=== PATIENT | male | born 1965 | race Caucasian/White ===

== ENCOUNTER 2016-11-23 01:22 | Inpatient (IN) | payer OTHER ==
[~2016-11-23] VITALS: Ht 175.3 cm; Wt 86.2 kg
[~2016-11-23 01:22] MED LIST: DIABETA 5 MG TAB5 MG PO; DIFLUCAN100 MG PO; GLUCOPHAGE XR500 MG PO; NORCO 5-325 TA1 EACH PO; NORVASC 5 MG TAB5 MG PO; ZOFRAN4 MG PO
[2016-11-23 02:58] LABS: HEMOGLOBIN 16.3 gm/dl (14.0-17.5); RED BLOOD COUNT 5.52 M/UL (4.20-5.50); WHITE BLOOD COUNT 7.3 K/UL (4.5-11.0)
[2016-11-23 03:15] LABS: BUN/CREATININE RATIO 13 (0-10)
[2016-11-24] MEDS ORDERED: LIPITOR TAB 2020 MG PO (17:05)
[2016-11-24] MEDS ORDERED: GLUCOPHAGE 500500 MG PO (17:06)
[2016-11-24] MEDS ORDERED: ASPIRIN325 MG PO (17:07)
== END 2016-11-24 18:15 | disposition home or self-care (01) | DRG 65 ==
LOC: ER1 01:22 → M/S 05:45 → ZEROF 05:45 → M/S 08:36
PROVIDERS: Family Medicine; ADMIT Internal Medicine
DX: I63.22 Cerebral infarction due to unspecified occlusion or stenosis of basilar artery (principal); G81.94 Hemiplegia, unspecified affecting left nondominant side; E11.65 Type 2 diabetes mellitus with hyperglycemia; R11.0 Nausea; I10 Essential (primary) hypertension; F41.9 Anxiety disorder, unspecified; Z79.84 Long term (current) use of oral hypoglycemic drugs; Z88.8 Allergy status to other drugs, medicaments and biological substances; Z88.5 Allergy status to narcotic agent; Z82.49 Family history of ischemic heart disease and other diseases of the circulatory system
CPT/HCPCS: ECHO; 36415; 70450; 70551; 71010; 80053; 80061; 82550; 82553; 82962; 83036; 83874; 84484; 85025; 93005; 93306; 93880; 93971; 96374; 99285; J2405

== ENCOUNTER → 2016-12-15 | Outpatient (CLI) | payer OTHER ==
[~2016-12-15] MED LIST changes: +ASPIRIN325 MG PO; +GLUCOPHAGE 500500 MG PO; +LIPITOR TAB 2020 MG PO
== END ==
LOC: US 10:00
DX: E04.1 Nontoxic single thyroid nodule (principal)
CPT/HCPCS: 10022; 76536

== ENCOUNTER 2016-12-17 19:38 | Emergency (ER) | payer OTHER ==
[2016-12-17 20:19] LABS: HEMOGLOBIN 15.2 gm/dl (14.0-17.5); RED BLOOD COUNT 5.25 M/UL (4.20-5.50); WHITE BLOOD COUNT 5.7 K/UL (4.5-11.0)
[2016-12-17 20:50] LABS: BUN/CREATININE RATIO 9 (0-10)
== END 2016-12-17 23:21 | disposition left against medical advice (07) ==
LOC: ER1 19:38
PROVIDERS: Emergency Medicine
DX: E11.65 Type 2 diabetes mellitus with hyperglycemia (principal); I10 Essential (primary) hypertension; Z88.5 Allergy status to narcotic agent; Z79.82 Long term (current) use of aspirin; Z90.49 Acquired absence of other specified parts of digestive tract; Z86.73 Personal history of transient ischemic attack (TIA), and cerebral infarction without residual deficits
CPT/HCPCS: 36415; 70450; 71010; 80053; 82550; 82553; 83874; 84484; 85025; 85610; 85730; 93005; 99285

== ENCOUNTER 2020-09-23 03:57 | Emergency (ER) | payer OTHER ==
[~2020-09-23 03:57] MED LIST changes: +BASAGLAR K100 UNIT/1 SQ; +KEFLEX CAP 500500 MG PO; +NORCO 7.5-3251 EACH PO; +PHENERGAN 12.12.5 MG PR; +VIBRAMYCIN100 MG PO; +ZOFRAN ODT 4 MG4 MG PO
[2020-09-23 05:39] LABS: HEMOGLOBIN 14.4 gm/dl (14.0-17.5); RED BLOOD COUNT 5.39 M/UL (4.20-5.50); WHITE BLOOD COUNT 7.3 K/UL (4.5-11.0)
[2020-09-23 06:04] LABS: BUN/CREATININE RATIO 7 (0-10)
== END 2020-09-23 06:51 | disposition home or self-care (01) ==
LOC: ER1 03:57
PROVIDERS: Family Medicine
DX: I10 Essential (primary) hypertension (principal); K21.9 Gastro-esophageal reflux disease without esophagitis; Z95.1 Presence of aortocoronary bypass graft; Z88.1 Allergy status to other antibiotic agents; Z88.5 Allergy status to narcotic agent
CPT/HCPCS: 36415; 80053; 82550; 82553; 83874; 84484; 85025; 93005; 99283

== ENCOUNTER 2021-02-19 20:14 | Emergency (ER) | payer OTHER ==
[2021-02-19 20:50] LABS: HEMOGLOBIN 16.2 gm/dl (14.0-17.5); RED BLOOD COUNT 5.89 M/UL (4.20-5.50); WHITE BLOOD COUNT 10.8 K/UL (4.5-11.0)
[2021-02-19 21:11] LABS: BUN/CREATININE RATIO 7 (0-10)
== END 2021-02-19 22:29 | disposition home or self-care (01) ==
LOC: ER1 20:14
PROVIDERS: Physician Assistant
DX: R20.0 Anesthesia of skin (principal); R11.0 Nausea; E11.9 Type 2 diabetes mellitus without complications; Z95.1 Presence of aortocoronary bypass graft; Z90.49 Acquired absence of other specified parts of digestive tract; Z79.02 Long term (current) use of antithrombotics/antiplatelets; Z86.73 Personal history of transient ischemic attack (TIA), and cerebral infarction without residual deficits
CPT/HCPCS: 70450; 80053; 82550; 82553; 82962; 83874; 84484; 85025; 93005; 96374; 99284; J2405

== ENCOUNTER 2021-06-04 16:32 | Inpatient (IN) | payer OTHER ==
[~2021-06-04] VITALS: Ht 175.3 cm; Wt 90.7 kg
[2021-06-04 17:56] LABS: HEMOGLOBIN 15.4 gm/dl (14.0-17.5); RED BLOOD COUNT 5.45 M/UL (4.20-5.50); WHITE BLOOD COUNT 23.4 K/UL (4.5-11.0)
[2021-06-04 18:36] LABS: BUN/CREATININE RATIO 8 (0-10)
[2021-06-04] MEDS ORDERED: ASPIRIN EC81 MG PO (19:41)
[2021-06-04] MEDS ORDERED: LOSARTAN POTAS100 MG PO (19:41)
[2021-06-04] MEDS ORDERED: GABAPENTIN600 MG PO (19:42)
[2021-06-04] MEDS ORDERED: ONDANSETRON HCL8 MG PO (19:42)
[2021-06-04] MEDS ORDERED: CLOPIDOGREL75 MG PO (19:43)
[2021-06-04] MEDS ORDERED: LANTUS SOL100 UNIT/1 SQ (19:43)
[2021-06-05 07:24] LABS: HEMOGLOBIN 14.2 gm/dl (14.0-17.5); RED BLOOD COUNT 5.14 M/UL (4.20-5.50)
[2021-06-05 07:29] LABS: WHITE BLOOD COUNT 12.4 K/UL (4.5-11.0)
[2021-06-05 07:57] LABS: BUN/CREATININE RATIO 9 (0-10)
[2021-06-05 17:52] LABS: ACINETOBACTER BAUMANNII Not Detected (Negative); CANDIDA ALBICANS Not Detected (Negative); CANDIDA KRUSEI Not Detected (Negative); CANDIDA TROPICALIS Not Detected (Negative); ENTEROCOCCUS Not Detected (Negative); ESCHERICHIA COLI Not Detected (Negative); HAEMOPHILUS INFLUENZAE Not Detected (Negative); KLEBSIELLA OXYTOCA Not Detected (Negative); KLEBSIELLA PNEUMONIAE Not Detected (Negative); KPC-CARBAPENEM-RESISTANCE GENE Not Detected (Negative); PROTEUS Not Detected (Negative); PSEUDOMONAS AERUGINOSA Not Detected (Negative); SERRATIA MARCESANS Not Detected (Negative); STREP AGALACTIAE (GROUP B) Not Detected (Negative); STREP PYOGENES (GROUP A) Not Detected (Negative); STREPTOCOCCUS Not Detected (Negative); mecA (METHICILLIN RESIST GENE Not Detected (Negative); vanA/B (VANCOMYCIN RESIST GENE Not Detected (Negative)
[2021-06-05 19:22] LABS: STAPHYLOCOCCUS DETECTED (Negative)
[2021-06-05 19:25] LABS: STAPHYLOCOCCUS AUREUS DETECTED (Negative)
[2021-06-05] MEDS ORDERED: FAMOTIDINE20 MG PO (19:41)
[2021-06-05] MEDS ORDERED: PROTONIX 40 MG40 M1 PO (19:42)
[2021-06-05] MEDS ORDERED: OXYCODONE HCL15 MG PO (19:42)
[2021-06-06 05:49] LABS: RED BLOOD COUNT 5.33 M/UL (4.20-5.50)
[2021-06-06 05:50] LABS: WHITE BLOOD COUNT 6.8 K/UL (4.5-11.0)
[2021-06-06 06:11] LABS: BUN/CREATININE RATIO 9 (0-10)
--- NOTE | 2021-06-06 16:56 | NUR ---
WOUND CARE PERFORMED AT THIS TIME. PATIENT TOLERATED WELL. UNABLE TO PACK WOUND ORDERED DUE TO DEPTH AND SIZE OF WOUND. CLEANSED AND WRAPPED WITH KERLIX.
[2021-06-08 07:00] LABS: HEMOGLOBIN 14.1 gm/dl (14.0-17.5); RED BLOOD COUNT 5.05 M/UL (4.20-5.50); WHITE BLOOD COUNT 6.9 K/UL (4.5-11.0)
[2021-06-08 07:18] LABS: BUN/CREATININE RATIO 9 (0-10)
[2021-06-08] MEDS ORDERED: AUGMENTIN 875-1 EACH PO (17:16)
[2021-06-08] MEDS ORDERED: ATORVASTATIN CA20 MG PO (17:16)
== END 2021-06-08 18:30 | disposition home or self-care (01) | DRG 638 ==
LOC: ER1 16:32 → CDU 19:11 → M/S 19:11
PROVIDERS: Physician Assistant Medical; ADMIT Internal Medicine
PROC: B24BZZZ Ultrasonography of Heart with Aorta (ICD-10-PCS; principal; 2021-06-08)
DX: E11.621 Type 2 diabetes mellitus with foot ulcer (principal); L97.528 Non-pressure chronic ulcer of other part of left foot with other specified severity; L02.612 Cutaneous abscess of left foot; E11.65 Type 2 diabetes mellitus with hyperglycemia; L03.032 Cellulitis of left toe; Z20.822 Contact with and (suspected) exposure to COVID-19; G89.29 Other chronic pain; M54.9 Dorsalgia, unspecified; E11.40 Type 2 diabetes mellitus with diabetic neuropathy, unspecified; I08.3 Combined rheumatic disorders of mitral, aortic and tricuspid valves; B95.61 Methicillin susceptible Staphylococcus aureus infection as the cause of diseases classified elsewhere; I25.10 Atherosclerotic heart disease of native coronary artery without angina pectoris; Z86.73 Personal history of transient ischemic attack (TIA), and cerebral infarction without residual deficits; Z79.82 Long term (current) use of aspirin; Z79.02 Long term (current) use of antithrombotics/antiplatelets; Z95.1 Presence of aortocoronary bypass graft; Z90.49 Acquired absence of other specified parts of digestive tract; Z82.49 Family history of ischemic heart disease and other diseases of the circulatory system; Z88.0 Allergy status to penicillin; Z88.8 Allergy status to other drugs, medicaments and biological substances; Z88.5 Allergy status to narcotic agent
CPT/HCPCS: ECHO; 36415; 73630; 73718; 80048; 80053; 80202; 82962; 83605; 85025; 85652; 86140; 87040; 87077; 87150; 87186; 93005; 93306; 93926; 96365; 96375; 99284; J0690; J0780; J1335; J1650; J2270; J2405; J3370; J7030; J7070; U0002

== ENCOUNTER 2021-09-06 14:50 | Emergency (ER) | payer OTHER ==
[~2021-09-06 14:50] MED LIST changes: +ASPIRIN EC81 MG PO; +ATORVASTATIN CA20 MG PO; +AUGMENTIN 875-1 EACH PO; +CLOPIDOGREL75 MG PO; +FAMOTIDINE20 MG PO; +GABAPENTIN600 MG PO; +LANTUS SOL100 UNIT/1 SQ; +LOSARTAN POTAS100 MG PO; +ONDANSETRON HCL8 MG PO; +OXYCODONE HCL15 MG PO; +PROTONIX 40 MG40 M1 PO
[2021-09-06 16:32] LABS: HEMOGLOBIN 16.4 gm/dl (14.0-17.5); RED BLOOD COUNT 5.82 M/UL (4.20-5.50); WHITE BLOOD COUNT 4.3 K/UL (4.5-11.0)
== END 2021-09-06 17:35 | disposition home or self-care (01) ==
LOC: ER1 14:50
PROVIDERS: Physician Assistant Medical
DX: U07.1 COVID-19 (principal); R11.0 Nausea; I10 Essential (primary) hypertension; E10.9 Type 1 diabetes mellitus without complications
CPT/HCPCS: 71045; 73630; 80053; 85025; 85652; 86140; 99283; U0002

== ENCOUNTER 2021-09-12 11:35 | Emergency (ER) | payer OTHER ==
[2021-09-12 12:12] LABS: HEMOGLOBIN 16.2 gm/dl (14.0-17.5); RED BLOOD COUNT 5.79 M/UL (4.20-5.50); WHITE BLOOD COUNT 4.7 K/UL (4.5-11.0)
[2021-09-12 12:34] LABS: BUN/CREATININE RATIO 15 (0-10)
[2021-09-12] MEDS ORDERED: ZOFRAN 4 MG TAB4 MG PO (14:00)
== END 2021-09-12 14:23 | disposition home or self-care (01) ==
LOC: ER1 11:35
PROVIDERS: Physician Assistant
DX: U07.1 COVID-19 (principal); J12.82 Pneumonia due to coronavirus disease 2019; I11.9 Hypertensive heart disease without heart failure; E11.9 Type 2 diabetes mellitus without complications; Z86.73 Personal history of transient ischemic attack (TIA), and cerebral infarction without residual deficits; Z95.1 Presence of aortocoronary bypass graft
CPT/HCPCS: 71045; 80053; 82550; 82553; 83874; 84484; 85025; 93005; 96374; 96375; 99284; J2270; J2405